=== PATIENT | male | born 1970 | race African-American/Black ===

== ENCOUNTER 2017-10-09 13:46 | Emergency (ER) | payer MEDICAID ==
[~2017-10-09] VITALS: Ht 188 cm; Wt 84.3 kg
[2017-10-09 13:50] VITALS: BP 144/77
[2017-10-09 14:32] LABS: CULTURE INDICATED? NO; MICROSCOPIC NOT IND
== END 2017-10-09 14:54 | disposition home or self-care (01) ==
LOC: ED 14:45
DX: N34.1 Nonspecific urethritis (principal); F17.200 Nicotine dependence, unspecified, uncomplicated
CPT/HCPCS: 81003; 99283